=== PATIENT | female | born 1955 | race Caucasian/White ===

== ENCOUNTER → 2021-08-28 09:55 | Outpatient (CLI) | payer OTHER, SELFPAY ==
[2021-08-28 13:10] LABS: COVID19 -Nasal RAPID POSITIVE (Negative)
== END ==
PROVIDERS: Referring Provider Nurse Practitioner Family; Visit Provider Nurse Practitioner Family
DX: U07.1 COVID-19 (principal); Z20.822 Contact with and (suspected) exposure to COVID-19
CPT/HCPCS: 87635; C9803

== ENCOUNTER 2021-09-05 18:14 | Inpatient (IN) | payer OTHER, SELFPAY ==
[2021-09-05] VITALS (12 sets, daily range): BP systolic 109–123; BP diastolic 55–71; PULSE 51–86; RESP 20–29; TEMP 37.7–38.3; O2SAT 81–99; BMI 21.6
--- NOTE | 2021-09-05 18:54 | DI.RAD.S_ITS ---
PROCEDURE: XR CHEST 1V INDICATIONS: covid TECHNIQUE: One view of the chest was acquired. COMPARISON: None. FINDINGS: Surgical changes and devices: None. Lungs and pleura: Bilateral lower lobe infiltrates consistent with pneumonia. No pleural effusions or pneumothorax. Mediastinum: Mediastinal contours appear normal. Heart size is normal. Bones and chest wall: No suspicious bony lesions. Overlying soft tissues appear unremarkable. IMPRESSION: Bilateral lower lobe pneumonia. Dictated by: Taylor Reed M.D. on 09/05/2021 at 19:53 Approved by: Taylor Reed M.D. on 09/05/2021 at 19:53
--- NOTE | 2021-09-05 19:17 | ED.SOB ---
HPI - SOB/Dyspnea General Chief Complaint: Shortness of Breath/Dyspnea Stated Complaint: LOW OXGYEN, SENT BY DOCTOR Time Seen by Provider: 09/05/21 18:33 Source: patient Mode of arrival: Wheelchair Limitations: no limitations History of Present Illness HPI Narrative: The patient is a 66-year-old female with no past medical history known COVID positive presenting today with increasing shortness of breath. She started having his symptoms on August 25 she was officially diagnosed on August 28, she was going in for eye surgery and needed COVID test. She has had cough body aches and fatigue. She is now satting 90% on room air with low-grade temperature. She says her stomach hurts coughing so hard. She generally does not feel well. She is not vaccinated Related Data Allergies Allergy/AdvReac Type Severity Reaction Status Date / Time No Known Drug Allergies Allergy Verified 09/05/21 18:29 Review of Systems Review of Systems Narrative: GENERAL: See HPI HEENT: Denies sinus pain, ear pain, sore throat, difficulty swallowing, neck pain RESPIRATORY: See HPI CARDIOVASCULAR: Denies chest pain, palpitations, orthopnea, edema GASTROINTESTINAL: Denies nausea, vomiting, abdominal pain, diarrhea, constipation, melena. : Denies dysuria, frequency, incontinence, hematuria, urinary retention, flank pain. MUSCULOSKELETAL: Denies weakness, joint pain, or bony pain SKIN: No rash, no erythema, no pruritus NEUROLOGIC: Denies weakness, dizziness, headache, numbness, change in speech, confusion PSYCHIATRIC: No concerning psychosocial issues. 12 point review of systems is negative except for those stated above and HPI Patient History Social History Smoking Status: Unknown if ever smoked Smoking Status: Unknown if ever smoked alcohol intake frequency: holidays/special occasions only Substance Use Type: does not use Exam Initial Vital Signs Initial Vital Signs: Vital Signs Temperature 100.9 F H 09/05/21 18:20 Pulse Rate 86 09/05/21 18:20 Respiratory Rate 20 09/05/21 18:20 Blood Pressure 109/55 L 09/05/21 18:20 Pulse Oximetry 90 L 09/05/21 18:20 GENERAL: Generally weak 66 year female HEENT: Head atraumatic,EOMI, pupils reactive, face symmetric, moist mucous membranes CARDIOVASCULAR: Regular rate and rhythm without murmurs, rubs or gallops. RESPIRATORY: crackles bilaterally no significant respiratory distress ABDOMEN: Soft, nontender. Normoactive bowel sounds all 4 quadrants. No guarding or rebound. EXTREMITIES: Normal range of motion, no clubbing or edema. Neurovascularly intact NEUROLOGICAL: Alert and oriented x4.Normal gait and speech. SKIN: Warm, dry, no laceration, no petechiae, no rashes or lesions. Course Orders Ordered: ED Orders 09/05/21 18:53 D Dimer Stat Procalcitonin Stat 09/05/21 18:54 XR chest 1V Stat C-Reactive Protein Quant Stat Complete Blood Count AUTO DIFF Stat Comprehensive Metabolic Panel Stat Ferritin Stat Lactate (Lactic Acid) Stat Lactate Dehydrogenase Stat NT-proBNP (BNP-Adult 18+) Stat Troponin & CK Cardiac Panel Stat 09/05/21 20:02 COVID19 - ADMIT ([employer]ING[employer] swab/PCR) Stat 09/05/21 20:15 Blood Culture Stat 09/05/21 20:46 CT angio chest PE protocol Stat Acetaminophen (Acetaminophen 325 Mg Tablet) 650 mg PO Q6HR PRN PRN Reason: Fever/Mild Pain (1-3) Dexamethasone (Dexamethasone 10 Mg/Ml Vial) 6 mg IV DAILY BATSHEVA Enoxaparin Sodium (Enoxaparin 40 Mg/0.4 Ml Syringe) 40 mg SUBCUT DAILY BATSHEVA Ondansetron HCl (Ondansetron 4 Mg/2 Ml Inj) 4 mg IV Q8HR PRN PRN Reason: Nausea And Vomiting Discontinued Medications Acetaminophen (Acetaminophen 325 Mg Tablet) 975 mg PO NOW ONE Stop: 09/05/21 19:08 Last Admin: 09/05/21 19:41 Dose: 975 mg Documented by: MARK Dexamethasone (Dexamethasone 10 Mg/Ml Vial) 6 mg IV NOW ONE Stop: 09/05/21 20:47 Last Admin: 09/05/21 21:32 Dose: 6 mg Documented by: TERESO Remdesivir 200 mg/ Sodium (Chloride) 250 mls @ 250 mls/hr IV NOW ONE Stop: 09/05/21 20:47 Last Admin: 09/05/21 21:05 Dose: Not Given Documented by: TERESO Vital Signs Vital signs: Vital Signs - 8 hr 09/05/21 20:18 09/05/21 20:19 09/05/21 20:28 Temperature 100 F H Pulse Rate 79 76 Respiratory Rate 27 H 23 Blood Pressure 111/66 Pulse Oximetry 96 96 09/05/21 20:30 09/05/21 21:13 09/05/21 21:30 Temperature Pulse Rate 73 69 68 Respiratory Rate 25 H 21 21 Blood Pressure 109/55 L Pulse Oximetry 96 98 98 09/05/21 22:00 09/05/21 22:30 Temperature Pulse Rate 61 55 L Respiratory Rate 20 24 Blood Pressure Pulse Oximetry 99 99 MDM - SOB/Dyspnea Lab Data Result diagrams: 09/05/21 18:54 09/05/21 18:54 Labs: Lab Results 09/05/21 09/05/21 09/05/21 Range/Units 18:53 18:53 18:54 WBC 4.9 (4.5-11.0) X10^3/uL RBC 4.05 (4.0-5.2) X10^6/uL Hgb 13.2 (12.0-16.0) g/dL Hct 38.7 (36-46) % MCV 95.7 (80-100) fL MCH 32.7 (26-34) PG MCHC 34.2 (30-36) % RDW 12.2 (11.6-14.8) % Plt Count 301 (150-400) X10^3/uL Neut % (Auto) 78.5 H (50-75) % Lymph % (Auto) 13.2 L (25-40) % [place] % (Auto) 8.0 (3-14) % Eos % (Auto) 0.0 L (2-4) % Baso % (Auto) 0.3 (0-2) % Neut # (Auto) 3900 (6085-1665) /uL Lymph # (Auto) 700 L (7950-6720) /uL [place] # (Auto) 400 (0-900) /uL Eos # (Auto) 0 (0-450) /uL Baso # (Auto) 0 (0-100) /uL D-Dimer 962 H (<230) ng/mL Sodium (137-145) mmol/L Potassium (3.4-5.1) mmol/L Chloride (98-107) mmol/L Carbon Dioxide (22-32) mmol/L BUN (7-17) mg/dL Creatinine (0.52-1.04) mg/dL Estimated GFR (>60) mL/min BUN/Creatinine Ratio (6-22) Glucose (80-110) mg/dL Lactate (0.7-2.1) mmol/L Calcium (8.4-10.2) mg/dL Ferritin (11-264) ng/mL Total Bilirubin (0.2-1.3) mg/dL AST (14-36) IU/L ALT (<35) IU/L Alkaline Phosphatase (38-126) U/L Lactate Dehydrogenase (313-618) U/L Total Creatine Kinase (30-135) U/L CK-MB (CK-2) (<2.37) ng/mL CK-MB (CK-2) Rel Index (1.5-5.0) % Troponin I (0.01-0.034) ng/mL C-Reactive Protein (<1.0) mg/dL NT-Pro-B Natriuret Pep (<125) pg/mL Total Protein (6.3-8.2) g/dL Albumin (3.5-5.0) g/dL Globulin (1.7-4.1) g/dL Albumin/Globulin Ratio (1.0-2.8) Procalcitonin 0.06 (<0.5) ng/mL SARS-CoV-2 (PCR) (Negative) 09/05/21 09/05/21 09/05/21 Range/Units 18:54 18:54 20:02 WBC (4.5-11.0) X10^3/uL RBC (4.0-5.2) X10^6/uL Hgb (12.0-16.0) g/dL Hct (36-46) % MCV (80-100) fL MCH (26-34) PG MCHC (30-36) % RDW (11.6-14.8) % Plt Count (150-400) X10^3/uL Neut % (Auto) (50-75) % Lymph % (Auto) (25-40) % [place] % (Auto) (3-14) % Eos % (Auto) (2-4) % Baso % (Auto) (0-2) % Neut # (Auto) (8021-7543) /uL Lymph # (Auto) (3715-0482) /uL [place] # (Auto) (0-900) /uL Eos # (Auto) (0-450) /uL Baso # (Auto) (0-100) /uL D-Dimer (<230) ng/mL Sodium 131 L (137-145) mmol/L Potassium 4.1 (3.4-5.1) mmol/L Chloride 99 (98-107) mmol/L Carbon Dioxide 27 (22-32) mmol/L BUN 12 (7-17) mg/dL Creatinine 0.62 (0.52-1.04) mg/dL Estimated GFR > 60.0 (>60) mL/min BUN/Creatinine Ratio 19.4 (6-22) Glucose 118 H (80-110) mg/dL Lactate 0.9 (0.7-2.1) mmol/L Calcium 9.0 (8.4-10.2) mg/dL Ferritin 307 H (11-264) ng/mL Total Bilirubin 0.5 (0.2-1.3) mg/dL AST 55 H (14-36) IU/L ALT 26 (<35) IU/L Alkaline Phosphatase 42 (38-126) U/L Lactate Dehydrogenase 825 H (313-618) U/L Total Creatine Kinase 160 H (30-135) U/L CK-MB (CK-2) 0.38 (<2.37) ng/mL CK-MB (CK-2) Rel Index 0.2 L (1.5-5.0) % Troponin I 0.014 (0.01-0.034) ng/mL C-Reactive Protein 3.1 H (<1.0) mg/dL NT-Pro-B Natriuret Pep 82 (<125) pg/mL Total Protein 7.3 (6.3-8.2) g/dL Albumin 4.0 (3.5-5.0) g/dL Globulin 3.3 (1.7-4.1) g/dL Albumin/Globulin Ratio 1.2 (1.0-2.8) Procalcitonin (<0.5) ng/mL SARS-CoV-2 (PCR) Positive H (Negative) Imaging Data Chest x-ray: Radiologist's Impression: PROCEDURE:? XR CHEST 1V ? INDICATIONS:? covid ? TECHNIQUE:? One view of the chest was acquired.? ? COMPARISON:? None. ? FINDINGS:? ? Surgical changes and devices:? None.? ? Lungs and pleura:? Bilateral lower lobe infiltrates consistent with pneumonia.? No pleural effusions or pneumothorax.? ? Mediastinum:? Mediastinal contours appear normal.? Heart size is normal.? ? Bones and chest wall:? No suspicious bony lesions.? Overlying soft tissues appear unremarkable.? ? IMPRESSION:? Bilateral lower lobe pneumonia. ? ? Dictated by: Taylor Reed M.D. on 09/05/2021 at 19:53 ?? CT scan - chest: Radiologist's Impression: PROCEDURE:? CT ANGIO CHEST PE PROTOCOL ? INDICATIONS:? covid, high dimer ? TECHNIQUE:? After the administration of intravenous contrast, 2 mm thick sections acquired from the pulmonary apices to the posterior costophrenic angles.? 3-dimensional maximum intensity projection (MIP) coronal and sagittal reformats were then acquired through the thorax.? For radiation dose reduction, the following was used:? automated exposure control, adjustment of mA and/or kV according to patient size.? ? COMPARISON:? [facility], CR, XR CHEST 1V, 09/05/2021, 19:13. ? FINDINGS:? Image quality:? Excellent.? ? Pulmonary arteries:? Pulmonary arteries are normal in size, and demonstrate no intraluminal filling defects to suggest central pulmonary embolism.? ? Lungs and pleura:? Bilateral airspace by opacities, worse in lower lobes, compatible with pneumonia.? There is a partially calcified nodule in the lateral aspect of the right upper lobe, most likely an old granuloma.? No pleural effusions or pneumothorax.? Central and peripheral airways are patent.? ? Mediastinum:? Heart size is normal, without pericardial effusion.? No mediastinal adenopathy.? There are enlarged right hilar lymph nodes, most likely reactive.? Thoracic aorta is normal in caliber and enhancement.? Esophagus is normal in caliber.? Small hiatal hernia.? ? Bones and chest wall:? No suspicious bony lesions.? Ribs and thoracic spine appear intact throughout.? Thyroid gland is normal.? No axillary or supraclavicular adenopathy.? ? Abdomen:? Visualized upper abdominal solid organs appear normal in the early arterial phase of enhancement.? ? IMPRESSION:? ? 1. No evidence for pulmonary embolism. 2. Bilateral pneumonia.? ? ? Dictated by: Taylor Reed M.D. on 09/05/2021 at 21:36 ? ? Approved by: Taylor Reed M.D. on 09/05/2021 at 21:39 MDM Narrative Medical decision making narrative: Patient is COVID positive 90% on room air she is immediately put on 2 L of oxygen. She has elevated markers such as D-dimer and lactate dehydrogenase ferritin and C reactive protein. She is in the time frame to decompensate from COVID. She is offered remdesivir and dexamethasone at this time she office only for the dexamethasone and declines the remdesivir. CT scan is fortunately negative for pulmonary embolism. Dr. Schultz is in emergency department disease evaluate patient and have play accepts patient. Discharge Plan Departure Patient Disposition: Admitted As Inpatient Clinical Impression: COVID-19 Admit Date/Time: 09/05/21 22:47 Admit Provider: Fausto Gomez
[2021-09-05] MEDS: ACETAMINOPHEN 325 MG TABLET 975 MG PO (19:41)
[2021-09-05 20:25] LABS: Add Manual Diff / Slide Review NO; Basophils Absolute Auto 0 /uL (0-100); Basophils Percent Auto 0.3 % (0-2); Eosinophils Absolute Auto 0 /uL (0-450); Hematocrit 38.7 % (36-46); Hemoglobin 13.2 g/dL (12.0-16.0); Lymphocytes Absolute Auto 700 /uL (1100-4500); Lymphocytes Percent Auto 13.2 % (25-40); Mean Corpuscular HGB Conc 34.2 % (30-36); Mean Corpuscular Hemoglobin 32.7 PG (26-34); Mean Corpuscular Volume 95.7 fL (80-100); Monocytes Absolute Auto 400 /uL (0-900); Neutrophils Absolute Auto 3900 /uL (1500-7000); Neutrophils Percent Auto 78.5 % (50-75); Platelet Count 301 X10^3/uL (150-400); Red Blood Cell Count 4.05 X10^6/uL (4.0-5.2); Red Cell Distribution Width 12.2 % (11.6-14.8); White Blood Cell Count 4.9 X10^3/uL (4.5-11.0)
[2021-09-05 20:28] LABS: D Dimer 962 ng/mL (<230)
[2021-09-05 20:31] LABS: Alanine Aminotransferase 26 IU/L (<35); Albumin Globulin Ratio 1.2 (1.0-2.8); Alkaline Phosphatase 42 U/L (38-126); Aspartate Aminotransferase 55 IU/L (14-36); BUN Creatinine Ratio 19.4 (6-22); Bilirubin Total 0.5 mg/dL (0.2-1.3); Blood Urea Nitrogen 12 mg/dL (7-17); Carbon Dioxide 27 mmol/L (22-32); Chloride 99 mmol/L (98-107); Creatine Kinase 160 U/L (30-135); Estimated Glomerular Filt Rate > 60.0 mL/min (>60); Globulin 3.3 g/dL (1.7-4.1); Glucose 118 mg/dL (80-110); HEMOLYSIS < 15 (0-50); Potassium 4.1 mmol/L (3.4-5.1); Sodium 131 mmol/L (137-145); Total Protein 7.3 g/dL (6.3-8.2)
[2021-09-05 20:32] LABS: Lactate (Lactic Acid) 0.9 mmol/L (0.7-2.1)
[2021-09-05 20:44] LABS: NT-proBNP (BNP-Adult 18+) 82 pg/mL (<125); Troponin I 0.014 ng/mL (0.01-0.034)
--- NOTE | 2021-09-05 20:46 | DI.CT.S_ITS ---
PROCEDURE: CT ANGIO CHEST PE PROTOCOL INDICATIONS: covid, high dimer TECHNIQUE: After the administration of intravenous contrast, 2 mm thick sections acquired from the pulmonary apices to the posterior costophrenic angles. 3-dimensional maximum intensity projection (MIP) coronal and sagittal reformats were then acquired through the thorax. For radiation dose reduction, the following was used: automated exposure control, adjustment of mA and/or kV according to patient size. COMPARISON: [facility], CR, XR CHEST 1V, 09/05/2021, 19:13. FINDINGS: Image quality: Excellent. Pulmonary arteries: Pulmonary arteries are normal in size, and demonstrate no intraluminal filling defects to suggest central pulmonary embolism. Lungs and pleura: Bilateral airspace by opacities, worse in lower lobes, compatible with pneumonia. There is a partially calcified nodule in the lateral aspect of the right upper lobe, most likely an old granuloma. No pleural effusions or pneumothorax. Central and peripheral airways are patent. Mediastinum: Heart size is normal, without pericardial effusion. No mediastinal adenopathy. There are enlarged right hilar lymph nodes, most likely reactive. Thoracic aorta is normal in caliber and enhancement. Esophagus is normal in caliber. Small hiatal hernia. Bones and chest wall: No suspicious bony lesions. Ribs and thoracic spine appear intact throughout. Thyroid gland is normal. No axillary or supraclavicular adenopathy. Abdomen: Visualized upper abdominal solid organs appear normal in the early arterial phase of enhancement. IMPRESSION: 1. No evidence for pulmonary embolism. 2. Bilateral pneumonia. Dictated by: Taylor Reed M.D. on 09/05/2021 at 21:36 Approved by: Taylor Reed M.D. on 09/05/2021 at 21:39
[2021-09-05 20:47] LABS: CKMB % Relative Index 0.2 % (1.5-5.0); Creatine Kinase MB 0.38 ng/mL (<2.37)
[2021-09-05 20:49] LABS: C-Reactive Protein Quant 3.1 mg/dL (<1.0); Lactate Dehydrogenase 825 U/L (313-618)
[2021-09-05 20:50] LABS: Procalcitonin 0.06 ng/mL (<0.5)
[2021-09-05 21:07] LABS: Ferritin 307 ng/mL (11-264)
[2021-09-05] MEDS: DEXAMETHASONE 10 MG/ML VIAL 6 MG IV (21:32)
[2021-09-05 21:33] LABS: COVID19 - ADMIT (NP swab/PCR) POSITIVE (Negative)
--- NOTE | 2021-09-05 23:24 | PM.HP.1 ---
History of Present Illness History of Present Illness Date Patient Seen: 09/05/21 Time Patient Seen: 23:00 Chief complaint: LOW OXGYEN, SENT BY DOCTOR Narrative: Ms. Pardo is a 66W with PMH of hypothroidism who comes in with shorntess of breath. She started feeling ill on 08/25, and was diagnosed on 08/28 as having COVID. She has had cough, myalgias, stomach pain from coughing. She was told to get a pulse oximeter and had low oxygen levels so was recommended to come in to the hospital. She is not vaccinated, she denies taking anything for COVID In the ED workup was done, vitals notable for temperature 100.9, spo2 90%. Labs notable for WBC 4.9, ddimer 962, procal 0.06, creatinine 0.62, trop 0.014. COVID positive. Chest xray showed bilateral infiltrates. CTA chest showed no PE. She was given dexamethasone. She declined remdesivir. Family history: , Hieu Salcedo, currently infected with COVID Medications: synthroid Patient History Family & Social History Safety & Behavioral: Feels Safe in Current Yes Environment Been Physically Hurt or No Threatened By a Person Tobacco & Substance use: Smoking Status Unknown if ever smoked alcohol intake frequency holiday/special occasion Substance Use Type does not use Meds Home Medications and Allergies Allergies Allergy/AdvReac Type Severity Reaction Status Date / Time No Known Drug Allergies Allergy Verified 09/05/21 18:29 Review of Systems Review of Systems Narrative: 14 systems reviewed nad negative aside from what is noted in HPI Exam Vital Signs (past 8 hours): - 09/05/21 18:20 09/05/21 20:18 09/05/21 20:19 Temperature 100.9 F H Pulse Rate 86 79 76 Respiratory Rate 20 27 H 23 Blood Pressure 109/55 L 111/66 Pulse Oximetry 90 L 96 96 09/05/21 20:28 09/05/21 20:30 09/05/21 21:13 Temperature 100 F H Pulse Rate 73 69 Respiratory Rate 25 H 21 Blood Pressure 109/55 L Pulse Oximetry 96 98 09/05/21 21:30 09/05/21 22:00 09/05/21 22:30 Temperature Pulse Rate 68 61 55 L Respiratory Rate 21 20 24 Blood Pressure Pulse Oximetry 98 99 99 Oxygen Delivery Method Room Air Oxygen Flow Rate 2 Narrative Exam Narrative: GEN: no acute distress HEENT: moist mucous membranes, PERRL NECK: no JVD, trachea midline CV: regular rate and rhythm, no murmurs PULM: good air movement bilaterally, coarse breath sounds ABD: soft, nontender, nondistended, no organomegaly, normal bowel sounds EXT: warm and well perfused with no edema NEURO: awake, alert, slightly confused but oriented PSYCH: pleasant, cooperative Objective Labs Result Diagrams: 09/05/21 18:54 09/05/21 18:54 Labs: Laboratory Results - last 24 hr 09/05/21 09/05/21 09/05/21 18:53 18:53 18:54 WBC 4.9 RBC 4.05 Hgb 13.2 Hct 38.7 MCV 95.7 MCH 32.7 MCHC 34.2 RDW 12.2 Plt Count 301 Neut % (Auto) 78.5 H Lymph % (Auto) 13.2 L [place] % (Auto) 8.0 Eos % (Auto) 0.0 L Baso % (Auto) 0.3 Neut # (Auto) 3900 Lymph # (Auto) 700 L [place] # (Auto) 400 Eos # (Auto) 0 Baso # (Auto) 0 D-Dimer 962 H Sodium Potassium Chloride Carbon Dioxide BUN Creatinine Estimated GFR BUN/Creatinine Ratio Glucose Lactate Calcium Ferritin Total Bilirubin AST ALT Alkaline Phosphatase Lactate Dehydrogenase Total Creatine Kinase CK-MB (CK-2) CK-MB (CK-2) Rel Index Troponin I C-Reactive Protein NT-Pro-B Natriuret Pep Total Protein Albumin Globulin Albumin/Globulin Ratio Procalcitonin 0.06 SARS-CoV-2 (PCR) 09/05/21 09/05/21 09/05/21 18:54 18:54 20:02 WBC RBC Hgb Hct MCV MCH MCHC RDW Plt Count Neut % (Auto) Lymph % (Auto) [place] % (Auto) Eos % (Auto) Baso % (Auto) Neut # (Auto) Lymph # (Auto) [place] # (Auto) Eos # (Auto) Baso # (Auto) D-Dimer Sodium 131 L Potassium 4.1 Chloride 99 Carbon Dioxide 27 BUN 12 Creatinine 0.62 Estimated GFR > 60.0 BUN/Creatinine Ratio 19.4 Glucose 118 H Lactate 0.9 Calcium 9.0 Ferritin 307 H Total Bilirubin 0.5 AST 55 H ALT 26 Alkaline Phosphatase 42 Lactate Dehydrogenase 825 H Total Creatine Kinase 160 H CK-MB (CK-2) 0.38 CK-MB (CK-2) Rel Index 0.2 L Troponin I 0.014 C-Reactive Protein 3.1 H NT-Pro-B Natriuret Pep 82 Total Protein 7.3 Albumin 4.0 Globulin 3.3 Albumin/Globulin Ratio 1.2 Procalcitonin SARS-CoV-2 (PCR) Positive H Assessment & Plan Assessment & Plan narrative: Ms. Pardo is a 66W with PMH hypothroidism who comes in with cough and found to have COVID pneumonia. 1. Acute hypoxemic respiratory failure with COVID pneumonia -desat down to 90% on room air -COVID positive -unfortunately unvaccinated -continue dexamethasone -patient declined remdesivir -encourage proning 2. Hypothyroidsm -continue synthroid CODE: Full Proxy: Mp Salcedo, son I have utilized all available resources to reconcile patient's medications Time Spent With Patient Critical Care time: I spent a total of [] minutes of critical care time on this patient's care today; this time is exclusive of procedural time.
[2021-09-06] VITALS (36 sets, daily range): BP systolic 101–149; BP diastolic 57–77; PULSE 47–84; RESP 15–26; TEMP 36.2–36.4; O2SAT 90–100; BMI 21.6
[2021-09-06 09:11] LABS: Add Manual Diff / Slide Review NO; Basophils Absolute Auto 0 /uL (0-100); Basophils Percent Auto 0.2 % (0-2); Eosinophils Absolute Auto 0 /uL (0-450); Hematocrit 40.7 % (36-46); Hemoglobin 14.2 g/dL (12.0-16.0); Lymphocytes Absolute Auto 900 /uL (1100-4500); Lymphocytes Percent Auto 19.2 % (25-40); Mean Corpuscular HGB Conc 34.8 % (30-36); Mean Corpuscular Hemoglobin 33.1 PG (26-34); Mean Corpuscular Volume 95.1 fL (80-100); Monocytes Absolute Auto 300 /uL (0-900); Monocytes Percent Auto 7.3 % (3-14); Neutrophils Absolute Auto 3300 /uL (1500-7000); Neutrophils Percent Auto 73.3 % (50-75); Platelet Count 316 X10^3/uL (150-400); Red Blood Cell Count 4.28 X10^6/uL (4.0-5.2); Red Cell Distribution Width 12.6 % (11.6-14.8); White Blood Cell Count 4.5 X10^3/uL (4.5-11.0)
[2021-09-06 09:24] LABS: BUN Creatinine Ratio 25.4 (6-22); Blood Urea Nitrogen 15 mg/dL (7-17); Calcium 9.7 mg/dL (8.4-10.2); Carbon Dioxide 29 mmol/L (22-32); Chloride 103 mmol/L (98-107); Estimated Glomerular Filt Rate > 60.0 mL/min (>60); Glucose 155 mg/dL (80-110); HEMOLYSIS < 15 (0-50); Potassium 4.4 mmol/L (3.4-5.1); Sodium 138 mmol/L (137-145)
[2021-09-06] MEDS: DEXAMETHASONE 10 MG/ML VIAL 6 MG IV (09:56)
[2021-09-06] MEDS: ENOXAPARIN 40 MG/0.4 ML SYRINGE SUBCUT (09:56)
--- NOTE | 2021-09-06 12:27 | P.PN_ITS ---
Subjective Subjective Date Patient Seen: 09/06/21 Interval history: 66 y/o female admitted to the hospital with acute respiratory failure secondary Covid-19 pneumonia. Patient reports she is still short of breath. She is on 2 liters of oxygen. She continues to have a nonproductive cough. Patient reports she does not want to take Remdesivir but is willing to continue with decadron. Exam Vital Signs (past 8 hours): - 09/06/21 04:30 09/06/21 05:00 09/06/21 05:37 Pulse Rate 47 L 47 L 82 Respiratory Rate 20 19 Blood Pressure Pulse Oximetry 98 97 90 L 09/06/21 05:38 09/06/21 06:00 09/06/21 06:30 Pulse Rate 68 54 L Respiratory Rate 26 H 25 H Blood Pressure Pulse Oximetry 96 96 99 09/06/21 07:00 09/06/21 07:30 09/06/21 08:00 Pulse Rate 54 L 53 L 63 Respiratory Rate 26 H 25 H 15 Blood Pressure Pulse Oximetry 94 96 97 09/06/21 08:30 09/06/21 09:00 09/06/21 09:30 Pulse Rate 62 68 72 Respiratory Rate 17 16 20 Blood Pressure Pulse Oximetry 96 94 94 09/06/21 10:00 09/06/21 10:05 09/06/21 10:30 Pulse Rate 71 84 70 Respiratory Rate 18 22 Blood Pressure 101/57 L Pulse Oximetry 95 92 91 09/06/21 10:56 09/06/21 11:00 09/06/21 11:30 Pulse Rate 67 64 70 Respiratory Rate 17 17 22 Blood Pressure 116/68 Pulse Oximetry 95 96 95 09/06/21 11:50 09/06/21 12:00 Pulse Rate 72 74 Respiratory Rate 20 Blood Pressure 108/64 Pulse Oximetry 95 Oxygen Delivery Method Nasal Cannula Oxygen Flow Rate 2 Narrative Exam Narrative: Ill appearing female Resp Other: Lungs: coarse scattered crackles in the right base, scant diffuse crackles in the left lung as well Cardio Other: CV: RRR nl Sl S2 GI Other: Abd: soft/ non tender/ non distended Extrem Other: no edema Objective Labs Result Diagrams: 09/06/21 08:50 09/06/21 08:50 Labs: Laboratory Results - last 24 hr 09/05/21 09/05/21 09/05/21 18:53 18:53 18:54 WBC 4.9 RBC 4.05 Hgb 13.2 Hct 38.7 MCV 95.7 MCH 32.7 MCHC 34.2 RDW 12.2 Plt Count 301 Neut % (Auto) 78.5 H Lymph % (Auto) 13.2 L [place] % (Auto) 8.0 Eos % (Auto) 0.0 L Baso % (Auto) 0.3 Neut # (Auto) 3900 Lymph # (Auto) 700 L [place] # (Auto) 400 Eos # (Auto) 0 Baso # (Auto) 0 D-Dimer 962 H Sodium Potassium Chloride Carbon Dioxide BUN Creatinine Estimated GFR BUN/Creatinine Ratio Glucose Lactate Calcium Ferritin Total Bilirubin AST ALT Alkaline Phosphatase Lactate Dehydrogenase Total Creatine Kinase CK-MB (CK-2) CK-MB (CK-2) Rel Index Troponin I C-Reactive Protein NT-Pro-B Natriuret Pep Total Protein Albumin Globulin Albumin/Globulin Ratio Procalcitonin 0.06 SARS-CoV-2 (PCR) 09/05/21 09/05/21 09/05/21 18:54 18:54 20:02 WBC RBC Hgb Hct MCV MCH MCHC RDW Plt Count Neut % (Auto) Lymph % (Auto) [place] % (Auto) Eos % (Auto) Baso % (Auto) Neut # (Auto) Lymph # (Auto) [place] # (Auto) Eos # (Auto) Baso # (Auto) D-Dimer Sodium 131 L Potassium 4.1 Chloride 99 Carbon Dioxide 27 BUN 12 Creatinine 0.62 Estimated GFR > 60.0 BUN/Creatinine Ratio 19.4 Glucose 118 H Lactate 0.9 Calcium 9.0 Ferritin 307 H Total Bilirubin 0.5 AST 55 H ALT 26 Alkaline Phosphatase 42 Lactate Dehydrogenase 825 H Total Creatine Kinase 160 H CK-MB (CK-2) 0.38 CK-MB (CK-2) Rel Index 0.2 L Troponin I 0.014 C-Reactive Protein 3.1 H NT-Pro-B Natriuret Pep 82 Total Protein 7.3 Albumin 4.0 Globulin 3.3 Albumin/Globulin Ratio 1.2 Procalcitonin SARS-CoV-2 (PCR) Positive H 09/06/21 09/06/21 08:50 08:50 WBC 4.5 RBC 4.28 Hgb 14.2 Hct 40.7 MCV 95.1 MCH 33.1 MCHC 34.8 RDW 12.6 Plt Count 316 Neut % (Auto) 73.3 Lymph % (Auto) 19.2 L [place] % (Auto) 7.3 Eos % (Auto) 0.0 L Baso % (Auto) 0.2 Neut # (Auto) 3300 Lymph # (Auto) 900 L [place] # (Auto) 300 Eos # (Auto) 0 Baso # (Auto) 0 D-Dimer Sodium 138 Potassium 4.4 Chloride 103 Carbon Dioxide 29 BUN 15 Creatinine 0.59 Estimated GFR > 60.0 BUN/Creatinine Ratio 25.4 H Glucose 155 H Lactate Calcium 9.7 Ferritin Total Bilirubin AST ALT Alkaline Phosphatase Lactate Dehydrogenase Total Creatine Kinase CK-MB (CK-2) CK-MB (CK-2) Rel Index Troponin I C-Reactive Protein NT-Pro-B Natriuret Pep Total Protein Albumin Globulin Albumin/Globulin Ratio Procalcitonin SARS-CoV-2 (PCR) PFSH Social History Smoking Status: Unknown if ever smoked Assessment & Plan Assessment & Plan narrative: 66 y/o female admitted to the hospital with Acute Hypoxic respiratory failure secondary to Covid-19 pneumonia * Continue oxygen, decadron * Goal is discharge home when either off oxygen or significantly improved clinically Hypothyroidism * Continue synthroid, Time Spent With Patient Critical Care time: I spent a total of [] minutes of critical care time on this patient's care tod ay; this time is exclusive of procedural time.
[2021-09-06] MEDS: ACYCLOVIR 400 MG TABLET 800 MG PO (18:46)
[2021-09-07] VITALS (10 sets, daily range): BP systolic 101–120; BP diastolic 59–73; PULSE 66–80; RESP 15–22; TEMP 36.2–36.5; O2SAT 86–97
[2021-09-07] MEDS: ENOXAPARIN 40 MG/0.4 ML SYRINGE SUBCUT (09:49)
[2021-09-07] MEDS: DEXAMETHASONE 10 MG/ML VIAL 6 MG IV (09:49)
--- NOTE | 2021-09-07 13:59 | CM.IDA ---
Discharge Planning/Care Management CM Discharge Assessment Start: 09/07/21 13:51 Freq: Status: Active Protocol: Document 09/07/21 13:51 JUNAID (Rec: 09/07/21 13:59 JUNAID [id number]) Discharge Planning Assessment Assigned Pharmacy Service Associate POLO [place] DPATUL/Assigned Designee Name Mp Salcedo, son spouse Hieu Salcedo (contact?) Contact Information [phone] Advance Directives? No History Provided By Medical Record Comment PCP: Dr Waller Payer: Donte ALVAREZ Prior Living Arrangements House Household Members spouse Type of transporation used prior to Drives own vehicle admit Independent with ADL's Yes Is patient alert and oriented? Yes Barriers to Discharge No Comment Expected to return home, possibly w/ O2. R/o need for HH upon DC Discharge Plan Home Transportation Arrangement Family Referrals Initiated None needed Additional Comment At this time. CM team will plan to follow closely and reassess if any DC needs or cocnerns arise
--- NOTE | 2021-09-07 14:36 | P.PN_ITS ---
Subjective Subjective Date Patient Seen: 09/07/21 Interval history: 66 year 0 unvaccinated female admitted to the hospital with COVID pneumonia Patient is on oxygen at 3 L with O2 sat of 96%. On room air sat is around 93%. She continues to have dry cough Exam Vital Signs (past 8 hours): - 09/07/21 09:00 Pulse Oximetry 93 Oxygen Delivery Method Nasal Cannula Oxygen Flow Rate 3 Narrative Exam Narrative: Pleasant female resting in bed in no obvious distress Resp Other: Lungs decreased breath sounds with diffuse crackles bilaterally Cardio Other: Cardiac exam: Regular rate and rhythm normal S1-S2 GI Other: Abdomen soft nontender nondistended Extrem Other: Extremity no edema Objective Labs Result Diagrams: 09/06/21 08:50 09/06/21 08:50 [facility] Medical History (Updated 09/06/21 @ 17:16 by Pearl Coronado RN) 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 Herpes simplex Hypothyroidism Menopause Nasal fracture Normal colonoscopy Osteopenia Postmenopausal atrophic vaginitis Therapeutic procedure Surgical History (Updated 09/06/21 @ 17:12 by Pearl Coronado RN) History of nasal surgery Hx of colonoscopy Social History household members: spouse Smoking Status: Never smoker Assessment & Plan Assessment & Plan narrative: 66 y/o female admitted to the hospital with Acute Hypoxic respiratory failure secondary to Covid-19 pneumonia * Continue oxygen, decadron * Goal is discharge home when either off oxygen or significantly improved clin ically * Will check the patient's rest and exercise O2 sat, if she remains hypoxic the patient can be discharged home on oxygen in addition to Decadron * Have offered the patient remdesivir which she again declined Hypothyroidism * Continue synthroid, Time Spent With Patient Critical Care time: I spent a total of [] minutes of critical care time on this patient's care today; this time is exclusive of procedural time. Quality VTE Deep Vein Thrombosis/Pulmonary Embolism Present on Admission: No
--- NOTE | 2021-09-07 15:10 | PC.NURSE ---
Ambulated in room without oxygen. Desat to 86, pt reports dizziness and SOB. Returned to bed. Sats increased to 88-89 after approx 3 min. Pt continued to report SOB. 1L NC applied sats increased to 91-93%, pt reports she feels better with oxygen on.
[2021-09-07] MEDS: SODIUM CHLORIDE 0.9% FLUSH 10 ML IV (20:44)
[2021-09-08 05:00] VITALS: BP 126/67; PULSE 66; RESP 15; TEMP 36.1; O2SAT 97
[2021-09-08] MEDS: LEVOTHYROXINE 75 MCG TABLET PO (06:36)
[2021-09-08 08:25] VITALS: O2SAT 93
[2021-09-08 09:00] VITALS: O2SAT 87
[2021-09-08] MEDS: DEXAMETHASONE 10 MG/ML VIAL 6 MG IV (09:02)
[2021-09-08] MEDS: SODIUM CHLORIDE 0.9% FLUSH 10 ML IV (09:03)
[2021-09-08] MEDS: ENOXAPARIN 40 MG/0.4 ML SYRINGE SUBCUT (09:03)
[2021-09-08 09:05] VITALS: O2SAT 91
[2021-09-08 11:00] VITALS: BP 111/70; PULSE 70; RESP 20; TEMP 36.6; O2SAT 94
--- NOTE | 2021-09-08 13:12 | CM.DPNOTE ---
DC Note DC home today w/S.O. and home O2. Eval for home O2 now pending No BROADCAST DESIGNER needs identified by or this BROADCAST DESIGNER JW
--- NOTE | 2021-09-08 13:16 | DIET.CONS ---
Dietary Consultation Note Admission Date: 09/05/2021 22:47 Assessment: 66 y/o F admitted with covid pneumonia. States she has lost 5.3# over the last two weeks, indicating a 4% weight loss. Loss of appetite and low intake over this time d/t illness. Diet recall indicates <75% intake over the last week or more. Endorses eating 1 tortilla, some corn chips and keto cereal to sustain herself, but she and her partner were too sick to cook or make regular meals. States she normally follows a keto diet, high in fat. Reports h/o hemochromatosis managed by Dr. Weber at [facility]. States she takes a vitamin c supplement which would normally not be rec for high iron etiology. Reports improved PO since admit. Declined any kind of ONS. Would prefer to get nutrition from food alone and to continue her keto diet here. Ht: 165.1 cm Wt: 58.967 kg BMI: 21.6 UBW: 61.4 kg (reported) Last BM: 09/06/21 (09/06/21 15:00) MNA: 11 Asim Score: 21 Diet: 09/06/21 Breakfast Heart Healthy Diet Diet Modifications: Nutrition Percent Meal Consumed 100% 09/07/21 14:55 Percent Meal Consumed 75% 09/07/21 10:14 Labs: RBC 4.28 X10^6/uL (4.0-5.2) 09/06/21 08:50 Hgb 14.2 g/dL (12.0-16.0) 09/06/21 08:50 Hct 40.7 % (36-46) 09/06/21 08:50 Creatinine 0.59 mg/dL (0.52-1.04) 09/06/21 08:50 Lactate 0.9 mmol/L (0.7-2.1) 09/05/21 18:54 Ferritin 307 ng/mL (11-264) H 09/05/21 18:54 NT-Pro-B Natriuret Pep 82 pg/mL (<125) 09/05/21 18:54 Nutrition Diagnosis: Moderate acute malnutrition r/t covid+ and illness impacting PO aeb unintentional 4% weight loss in 12-14 days, <75% intake over 7-9 days, and BMI <23 at age 64 Interventions: 1. She declined any type of ONS 2. Provided education on choosing higher protein foods. Discussed concerns about malnutrition with covid+ status. Plans to choose turkey roll BID along with protein at each meal. Also discussed ways to increase fat intake to increase kcals. She was receptive. 3. Discussed hemochromatosis and vitamin c. Monitoring/Evaluations: consult prn Electronically Signed by: Jackie Pak 09/08/21 13:16 Clinical Dietitian [address] [address]
--- NOTE | 2021-09-08 13:30 | P.DS_ITS ---
History of Present Illness History of Present Illness Date Patient Seen: 09/08/21 Time Patient Seen: 13:30 Chief complaint: LOW OXGYEN, SENT BY DOCTOR Narrative: History of Present Illness Date Patient Seen:?09/05/21 Time Patient Seen:?23:00 Narrative: Ms. Pardo is a 66W with PMH of hypothroidism who comes in with shorntess of breath. She started feeling ill on 08/25, and was diagnosed on 08/28 as having COVID. She has had cough, myalgias, stomach pain from coughing. She was told to get a pulse oximeter and had low oxygen levels so was recommended to come in to the hospital. She is not vaccinated, she denies taking anything for COVID In the ED workup was done, vitals notable for temperature 100.9, spo2 90%. Labs notable for WBC 4.9, ddimer 962, procal 0.06, creatinine 0.62, trop 0.014. COVID positive. Chest xray showed bilateral infiltrates. CTA chest showed no PE. She was given dexamethasone. She declined remdesivir. Family history: , Hieu Salcedo, currently infected with COVID Medications: synthroid Discharge Providers Provider Date of admission: 09/05/21 22:47 Discharge Date: 09/08/21 Primary care physician: Doctor Olya MD Consults: 09/06/21 16:15 Consult to Dietitian, Adult Routine Comment: Reason For Exam: wt loss, on keto diet due to hemochromatosis 09/07/21 15:09 Consult to Respiratory Therapy Evaluate & Treat Comment: Physician Instructions: Evaluate and treat Discharge provider: Heena Mckeon DO Summary Hospital Course Discharge Diagnosis: ACUTE HYPOXIC RESPIRATORY FAILURE. RESOLVED COVID-19 PNEUMONIA. STABLE HYPOTHYROIDISM. DISCHARGE ON HOME MEDS Hospital Course: THIS IS A VERY PLEASANT 66-YEAR-OLD FEMALE ADMITTED TO THE HOSPITAL WITH COVID PNEUMONIA. SHE IS AND ON VACCINATED FEMALE. SHE WAS TREATED CONSERVATIVELY WITH STEROIDS AND OTHER RECOMMENDED TREATMENTS SHE HAS RESPONDED VERY WELL TO THE MANAGEMENT. AT THIS TIME, SHE IS ABLE TO MAINTAIN PROPER OXYGEN SATURATION ABOVE 88% ON 2-4 L PER NASAL CANNULA OF OXYGE N. SHE WILL BE DISCHARGED ON OXYGEN THERAPY FOR HOME USE. SHE ALSO WILL BE DISCHARGED ON ANTIBIOTICS WELL A STEROID TAPER DOSE DUONEB TREATMENT WELL ALBUTEROL INHALER ORDERED NEEDED. ADDITIONAL MANAGEMENT WILL BE DEFERRED TO OUTPATIENT PROVIDERS SHE WILL NEED TO FOLLOW THE CDC AND LOCAL AUTHORITIES RECOMMENDATIONS IN REGARD TO CURRENT ONGOING PANDEMIC AND HER COVID DIAGNOSIS Status at Discharge Cognitive/behavioral status at discharge: oriented Functional status at discharge: independent ambulation Overall status at discharge: patient is progressing back to baseline Time Spent with Patient Time spent: Greater than 30 minutes Exam Vital Signs (past 8 hours): - 09/08/21 09:00 09/08/21 09:05 Pulse Oximetry 87 L 91 Oxygen Delivery Method Nasal Cannula Oxygen Flow Rate 2 Narrative Exam Narrative: NO ACUTE DISTRESS. PATIENT IS ALERT ORIENTED X3. VITAL SIGNS STABLE HEAD ATRAUMATIC NORMOCEPHALIC NECK : SUPPLE WITHOUT ADENOPATHY NO CAROTID BRUITS EYE: EOMI, PERRLA, NORMAL CONJUNCTIVA; NO JAUNDICE CHEST: REGULAR RATE. NO RUBS. PMI IS NON DISPLACED. NO MURMURS; NORMAL S1- S2 PULMONARY: DECREASED BS OVER THE BASES. MILD BIBASILAR CRACKLES NOTED; NO INCREASED DULLNESS TO PERCUSSION ABDOMEN: SOFT. NONTENDER. NONDISTENDED. BOWEL SOUNDS ARE PRESENT IN ALL 4 QUADRANTS. NO MASS. EXTREMITIES: NO EDEMA.. NO CYANOSIS CLUBBING NOTED. NEURO: CRANIAL NERVES 2-12 GROSSLY INTACT. NO FOCAL NEUROLOGICAL DEFICIT NOTED. MSK: NORMAL RANGE OF MOTION FOR AGE. NO JOINT EFFUSION. SKIN: NORMAL FOR ETHNICITY; NO ECCHYMOSIS. NO LESION. GOOD TURGOR.; NO RASHES : NORMAL EXTERNAL GENITALIA. PSYCH : APPROPRIATE MOOD AND AFFECT. 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 Herpes simplex Hypothyroidism Menopause Nasal fracture Normal colonoscopy Osteopenia Postmenopausal atrophic vaginitis Therapeutic procedure Surgical History (Updated 09/06/21 @ 17:12 by Pearl Coronado RN) History of nasal surgery Hx of colonoscopy Social History household members: spouse Smoking Status: Never smoker Discharge Plan Discharge Plan Patient Disposition: Home Nursing Discharge Comment: PLEASE DISCHARGE ONCE HOME OXYGEN EVALUATION HAS BEEN COMPLETED Discharge orders & Medications Prescriptions: New dexamethasone [Decadron] 0.5 mg tablet 0.5 mg PO DIRECTED Qty: 30 0RF Rx Instructions: 4MG PO BID X 3 DAYS 4MG PO QD X 3 DAYS 2MG PO QD 3 DAYS 1MG PO QD X 3 DAYS 0.5 MG PO QD X 3 DAYS THEN STOP levofloxacin 500 mg tablet 500 mg PO DAILY 7 Days 0RF cefdinir 300 mg capsule 300 mg PO BID Qty: 14 0RF benzonatate 200 mg capsule 200 mg PO TID PRN (Reason: cough) Qty: 20 0RF albuterol sulfate 90 mcg/actuation HFA aerosol inhaler 2 puff inhalation Q4-6H PRN (Reason: shortness of breath or wheezing) Qty: 6.7 0RF ipratropium-albuterol 0.5 mg-3 mg(2.5 mg base)/3 mL solution for nebulization 3 ml inhalation Q4-6H PRN (Reason: shortness of breath or wheezing) Qty: 90 0RF ascorbate calcium (vitamin C) 500 mg tablet 1 g PO BID Qty: 60 0RF ipratropium-albuterol 0.5 mg-3 mg(2.5 mg base)/3 mL solution for nebulization 3 ml inhalation Q6-8H PRN (Reason: shortness of breath or wheezing) Qty: 90 0RF Continued acyclovir 400 mg tablet 400 mg PO Q8H 0RF Rx Instructions: Take 1 tablet every 8 hours for 5 days. coenzyme Q10 [Co Q-10] 400 mg Capsule 400 mg PO DAILY 0RF levothyroxine 75 mcg tablet 75 mcg PO DAILY 0RF Prabhu-Mag 200 mg calcium- 100 mg Tablet,Chewable 200 tab PO DAILY 0RF cranberry 450 mg Tablet 450 mg PO DAILY 0RF Rx Instructions: administer with a meal jgipzfaqxfz-siytmejbv-hmg C-Mn 500-400 mg Capsule 1 cap PO DAILY 0RF Healthy Eyes Lutein-Zeaxanthin 60 mg-13.5 mg- 15 mg-2 mg-6 mg Capsule 1 cap PO DAILY 0RF minerals Tablet 1 tab PO DAILY 0RF vitamin B complex Capsule 1 cap PO DAILY 0RF vitamin E mixed 400 unit Capsule 1 unit PO DAILY 0RF Discontinued ascorbic acid (vitamin C) 500 mg Capsule 1 mg PO DAILY 0RF benzonatate 200 mg Capsule 200 mg PO TID 0RF Rx Instructions: Cough Follow up/Referrals: Miscellaneous,Doctor, MD [Primary Care Provider] - Diet/Activity/Treatments Diet: Diet as Tolerated Activity: TOLERATED Skin/Wound/Dressing Care Report to your healthcare provider any signs of infection, such as:: chills, fever, night sweats, increased pain and unusual drainage Visit Report/Discharge Packet Instructions: Home Oxygen Therapy, DI for COVID-19 (Suspected or Confirmed ) Discharge Data Primary Care Provider: Miscellaneous,Doctor Quality VTE Deep Vein Thrombosis/Pulmonary Embolism Present on Admission: No
--- NOTE | 2021-09-08 19:04 | PC.NURSE ---
Pt discharged. Home O2 set-up by RMachoTMacho IV removed. Education provided. Pt verbalized she will follow all d/c instructions, will remain isolated per orders for at least 10 days from start of symptoms. Pt awaiting spouse to pick her up. Will call when ready to be escorted out via w/c. Hand-off report given to oncoming nurse.
== END 2021-09-08 19:35 | disposition home or self-care (01) | DRG 177 ==
LOC: ED 22:34 → AC 22:48
PROVIDERS: Admitting Provider Internal Medicine; Emergency Provider Emergency Medicine; Referring Provider Emergency Medicine; Visit Provider Internal Medicine
DX: U07.1 COVID-19 (principal); J12.82 Pneumonia due to coronavirus disease 2019; J96.01 Acute respiratory failure with hypoxia; E03.9 Hypothyroidism, unspecified
CPT/HCPCS: 36415; 71045; 71275; 80048; 80053; 82550; 82553; 82728; 83605; 83615; 83880; 84145; 84484; 85025; 85379; 86140; 87040; 87635; 94618; 94760; 94762; 96374; 99285; C9803; J1100; J1650; Q9967

== ENCOUNTER → 2021-11-06 11:40 | Outpatient (CLI) | payer OTHER, SELFPAY ==
[2021-09-06 15:00] VITALS: BMI 21.6
[2021-11-06 13:36] LABS: COVID19 -Nasal RAPID Negative (Negative)
== END ==
PROVIDERS: Visit Provider Family Medicine Sleep Medicine
DX: Z20.822 Contact with and (suspected) exposure to COVID-19 (principal)
CPT/HCPCS: 87635; C9803

== ENCOUNTER 2021-11-07 08:16 | Day surgery (SDC) | payer OTHER, SELFPAY ==
[2021-09-06 15:00] VITALS: BMI 21.6
[2021-11-07] MEDS: PROPARACAINE 0.5% OPHTH SOL 2 DROPS EYE-OP (09:13)
[2021-11-07] MEDS: CATARACT EYE COMPOUND (10 DROPS/SYRINGE) 3 DROPS EYE-OP (09:13)
[2021-11-07 09:25] VITALS: BP 114/73; PULSE 67; RESP 14; TEMP 36.8; O2SAT 98
[2021-11-07 09:27] VITALS: BMI 22.3
--- NOTE | 2021-11-07 09:47 | P.OP.PRE_ITS ---
Pre-operative Note Interval Note History & Physical reviewed/Exam performed by Physician: Yes Changes to H&P: No Addendum Addendum Note: There are no non surgical alternatives to the patient's condition. Deteriora tion of the patient's condition is expected. Delay may result in more complex future care
--- NOTE | 2021-11-07 09:48 | P.OP_ITS ---
Operative Date/Time/Diagnoses Pre-op diagnosis: Nuclear cataract right eye Procedure & Clinicians Procedure: Cataract Surgery Same procedure as scheduled: Yes Surgeon: Jake Zhu Anesthesia Type: MAC +/- and Sedation Operative Notes Procedure in detail: Patient brought to the operating suite. Tetracaine drops placed in the right eye. Marking instrument was used to elias the vertical and horizontal meridians. Patient was prepped and draped in sterile manner. Wire lid speculum was placed in the eye. Marking instrument was used to elias the 75 degree meridian. Betadine drops were placed on the eye. This was irrigated. Lidocaine jelly was placed on the eye. A paracentesis port was created with a side-port blade. 0.1 mL 1% preservative free lidocaine was injected into the anterior chamber. The anterior chamber was deepened with viscoelastic. 2.6 mm keratome was used to create a temporal clear corneal incision. Cystotome and Utrata forceps were used to create continuous tear capsulorrhexis. Balanced salt solution was used to hydro dissect the nucleus. The phacoemulsification handpiece was inserted and the nucleus was removed using the stop and chop technique. The irrigation aspiration handpiece was inserted and the remaining cortex was removed. Anterior chamber was deepened with viscoelastic. An Lucero [id number] intraocular lens with a power of 21.0 was injected into the capsular bag. Irrigation aspiration handpiece was inserted and the remaining viscoelastic was removed. The lens was rotated to the 75 degree meridian. Incision was hydrated with balanced salt solution and found to be leak free with pressure with Weck-Chantell sponges. 0.1 mL Vigamox injected anterior chamber. 0.3 mL Kenalog 10 mg was injected subconju nctivally. Lid speculum was removed. The patient left the operating room in excellent condition. Complications: none Post-operative Condition: stable Disposition: same day surgery
[2021-11-07] MEDS: MOXIFLOXACIN INJ 4 MG/0.8 ML VIAL 0.5 MG EYE-OP (10:04)
[2021-11-07] MEDS: HYALURONATE SODIUM 30 MG-10 MG/ML SYRINGES 1 BOX INTRAOCULA (10:04)
[2021-11-07] MEDS: PHENYLEPHRINE/LIDOCAINE VIAL (OR) 0.2 ML EYE-OP (10:04)
[2021-11-07] MEDS: TETRACAINE 0.5% OPHTH DROPS 4 ML 2 DROPS EYE-OP (10:05)
[2021-11-07] MEDS: LIDOCAINE 2% (GLYDO) 6 ML GEL TOP (10:05)
[2021-11-07] MEDS: BALANCED SALT IRRIG SOLN NO.2 500 ML, EPINEPHrine 1 MG IRR (10:05)
[2021-11-07] MEDS: TRIAMCINOLONE 50 MG/5 ML VIAL INJ (10:05)
[2021-11-07 10:16] VITALS: BP 97/69; PULSE 59; RESP 16; TEMP 36.3; O2SAT 98
== END 2021-11-07 10:41 | disposition home or self-care (01) ==
PROVIDERS: PCP Naturopath; Referring Provider Ophthalmology; Visit Provider Ophthalmology
PROC: (CPT 66984; principal; 2021-11-07 10:15)
DX: H25.11 Age-related nuclear cataract, right eye (principal); E03.9 Hypothyroidism, unspecified
CPT/HCPCS: 66984; J0171; J2250; J3010; J3301; V2787

== ENCOUNTER → 2022-08-28 15:37 | Outpatient (CLI) | payer OTHER, SELFPAY ==
[2021-09-06 15:00] VITALS: BMI 21.6
--- NOTE | 2022-08-28 15:41 | DI.RAD.S_ITS ---
PROCEDURE: XR CHEST 2V INDICATIONS: Acute cough TECHNIQUE: 2 views of the chest were acquired. COMPARISON: None. FINDINGS: Surgical changes and devices: None. Lungs and pleura: Small focal airspace opacity noted in the lateral periphery of the right middle lobe. Trace right-sided pleural fluid collection. No pneumothorax. Mediastinum: Mediastinal contours are normal. Heart size is normal. Bones and chest wall: No suspicious bony abnormalities. Soft tissues appear unremarkable. IMPRESSION: Small right middle lobe opacity concerning for pneumonia. Dictated by: Tatiana Ghotra MD, PhD on 08/28/2022 at 16:12 Approved by: Tatiana Ghotra MD, PhD on 08/28/2022 at 16:12
== END ==
PROVIDERS: PCP Naturopath; Referring Provider Naturopath; Visit Provider Naturopath
DX: R05.1 Acute cough (principal)
CPT/HCPCS: 71046

== ENCOUNTER → 2022-11-27 14:56 | Outpatient (CLI) | payer OTHER, SELFPAY ==
[2021-09-06 15:00] VITALS: BMI 21.6
--- NOTE | 2022-11-27 | DI.MRI.S_ITS ---
PROCEDURE: MR LUMBAR SPINE WO CON INDICATIONS: Wedge compression fracture of unspecified lumbar vertebra, s TECHNIQUE: Noncontrast sagittal T1 spin echo and T2 fast echo, sagittal STIR, and T2 fast spin echo through the lumbar spine. In cases with scoliosis, additional coronal T2 fast spin echo may be performed. COMPARISON: None. FINDINGS: Image quality: Excellent. Alignment and Curvature: There is trace anterolisthesis L3 on L4, trace retrolisthesis L5 on S1. Bone Marrow: Marrow is of normal overall signal. Moderate to severe reactive endplate changes present L5-S1. No acute vertebral body compression fractures. There is mild superior endplate deformity at L1, appearing chronic. Spinal Cord: Conus medullaris terminates at the L1 level. Visualized cord demonstrates normal signal and size. Paraspinous Soft Tissues: No paravertebral masses. Discs: Moderate to severe desiccation is present L5-S1 throughout remainder the spine. There is mild increased T2 signal within the disc L5-S1. L1-L2: No disc bulge, spinal stenosis or foraminal narrowing. L2-L3: No disc bulge, spinal stenosis or foraminal narrowing. Mild facet and ligamentum flavum hypertrophy. L3-L4: Mild disc bulge without spinal stenosis. Mild bilateral foraminal narrowing with facet and ligamentum flavum hypertrophy. Minimal epidural lipomatosis. L4-L5: Mild disc bulge without spinal stenosis. [id number] bilateral foraminal narrowing with facet and ligamentum flavum hypertrophy. L5-S1: Mild disc bulge including a left lateral/foraminal component. Moderate bilateral foraminal narrowing with facet hypertrophy. IMPRESSION: Multilevel degenerative changes. No spinal stenosis. Multilevel foraminal narrowing most severe at L5-S1 secondary to facet arthropathy. Prominent reactive endplate changes as well as increased signal within the disc at L5-S1. Overall appearance is suggestive of degenerative change. However, if there is clinical concern or symptoms related to potential discitis/osteomyelitis, contrast study is recommended. Old endplate deformity at L1. No acute fractures. Dictated by: Cinthia Salazar M.D. on 11/27/2022 at 21:37 Approved by: Cinthia Salazar M.D. on 11/27/2022 at 21:42
== END ==
PROVIDERS: PCP Naturopath; Referring Provider Naturopath; Visit Provider Naturopath
DX: S32.000S Wedge compression fracture of unspecified lumbar vertebra, sequela (principal); M47.816 Spondylosis without myelopathy or radiculopathy, lumbar region; M47.817 Spondylosis without myelopathy or radiculopathy, lumbosacral region; M48.07 Spinal stenosis, lumbosacral region
CPT/HCPCS: 72148